=== PATIENT | female | born 1995 | race Caucasian/White ===

== ENCOUNTER 2016-10-04 23:13 | Emergency (ER) | payer OTHER ==
[~2016-10-04] VITALS: Ht 157.5 cm; Wt 94.3 kg
[~2016-10-04 23:13] MED LIST: ADVIL MIGRAINE200 MG PO; AMOXICILLIN500 M2 PO; ATIVAN1 M1 PO; CIPRO 500MG TA500 MG PO; CIPRO500 M1 PO; CIPROFLOXACIN500 M2 PO; ESCITALOPRAM10 MG PO; EXCEDRIN MIGRAI1 TAB PO; FIORICET 50-301 EACH PO; IBUPROFEN600 M1 PO; KETOROLAC TROME10 M1 PO; LORAZEPAM1 MG PO; ONDANSETRON HCL4 MG PO; PERCOCET 5-3251 EACH PO; TYLENOL EXTRA500 M2 PO; ZOFRAN ODT4 M1 PO; ZOFRAN4 M1 PO; ZOFRAN4 M2 PO
--- NOTE | 2016-10-05 00:10 | ED GI/GU/ABDOMINAL COMPLAINT ---
History of Present Illness General Chief Complaint: Abdominal Pain/Flank Pain Stated Complaint: ABD PAIN AND BURNING Source: patient, old records Exam Limitations: no limitations Vital Signs & Intake/Output Vital Signs & Intake/Output Vital Signs Date Time Temp Pulse Resp B/P B/P Pulse O2 O2 Flow FiO2 Mean Ox Delivery Rate 10/05 0101 98.3 78 18 132/84 98 Room Air 10/04 2328 98.3 78 18 128/85 97 Room Air ED Intake and Output 10/05 0000 10/04 1200 Intake Total Output Total Balance Patient 208 lb Weight Weight Reported by Patient Measurement Method Allergies Coded Allergies: NO KNOWN ALLERGIES (04/21/15) Reconcile Medications Acetaminophen (Tylenol Extra Strength) 500 MG TABLET 4 TAB PO PRN PAIN ( Reported) Amoxicillin 500 MG CAPSULE 1 CAP PO TID ear infection Butalb/Acetaminophen/Caffeine (Fioricet 50-300-40 MG Capsule) 50 MG-300 MG-40 MG CAPSULE 1-2 TAB PO Q6P PRN headache Dicyclomine Hydrochloride (Bentyl) 10 MG CAPSULE 1 CAP PO TID PRN pain Famotidine (Pepcid) 20 MG TABLET 1 TAB PO BID gastritis Ibuprofen 600 MG TABLET 1 TAB PO TID PRN pain with food Lorazepam (Ativan) 1 MG TABLET 1 TAB PO PRN ANXIETY (Reported) Ondansetron (Zofran Odt) 4 MG TAB.RAPDIS 1 TAB SL TID PRN nausea Triage Note: PT TO TRIAGE WITH C/O LUQ ABD BURNING x1HR, NAUSEA, VOMITINGx2, DIARRHEA. NO OTHER COMLAINTS. VSS. PT AFEBRILE. Triage Nurses Notes Reviewed? yes LMP (ages 10-50): now ? N Is pt currently ? No Onset: Abrupt Duration: hour(s): (1), constant Timing: recent history Quality/Severity: burning Severity Numbers: 5 Location: epigastric, left upper quadrant Radiation: no radiation Activities at Onset: none No Modifying Factors: none Associated Symptoms: nausea/vomiting HPI: 21-year-old female with history of cholecystectomy presents to ER for evaluation with a 1 hour history of left upper quadrant epigastric abdominal burning pain associated with nausea and one episode of vomiting. No sick contacts no diarrhea is no radiation of pain no back pain chest pain shortness of breath. No black or bloody stools no hematemesis she is not taken anything for symptoms she does smoke she states she had a few alcoholic drinks tonight skeletal however denies any pain yesterday or all day until 1 hour ago. No other modifying factors or associated symptoms. Past History Travel History Traveled to [place] past 21 day No Medical History Any Pertinent Medical History? see below for history Neurological: NONE EENT: NONE Cardiovascular: NONE Respiratory: NONE Gastrointestinal: CHRONIC VOMITIING Hepatic: NONE Renal: NONE Psychiatric: anxiety Endocrine: NONE Surgical History Surgical History: cholecystectomy Psychosocial History What is your primary language [place] Tobacco Use: Current Daily Use Daily Tobacco Use Amount/Type: => 5 Cigarettes daily Family History Hx Contributory? No Review of Systems Review of Systems Constitutional: Reports: see HPI. All Other Systems: Reviewed and Negative Comments Review of systems: See HPI, All other systems negative. Constitutional, no chills no fever, no malaise HEENT: no sore throat no congestion Cardiovascular: No chest pain , no palpitation Skin: no rashes, no change in skin Respiratory: No dyspnea no cough no sputum GI: nausea vomiting, no diarrhea, no bloating/constipation : No dysuria No hematuria, no frequency Muscle skeletal: No joint pain, no back pain, no neck pain, Neurologic: No numbness n no headache Psych: No stress Heme/endocrine: No bruising no bleeding Immunology: No lymphadenopathy Physical Exam Physical Exam General Appearance: well developed/nourished, no apparent distress, alert Gastrointestinal: soft, non-tender Comments: Well-developed well-nourished person in no acute distress HEENT: Normal EENT exam; PERRL, EOMI, HEAD is atraumatic. moist mucous membranes. Neck: Supple, no lymphadenopathy, normal range of motion Back: Nontender, no CVA tenderness. Full range of motion Cardiovascular: Regular rate and rhythms no murmurs rubs Respiratory: No respiratory distress. Patient speaking in full complete sentences. Breath sounds clear to auscultation bilaterally: NO W/R/R Abdomen: Soft, nontender nondistended, no appreciable organomegaly. Normal bowel sounds. No rebound/guarding, No appreciable enlargement of the abdominal aorta, No ascites. Extremity: No edema, full range of motion of extremities Neuro: Alert oriented x3, motor sensory normal, There were no obvious focal neurologic abnormalities. Skin: No appreciable rash on exposed skin, skin is warm and dry. Psych: Mood and affect is normal, memory and judgment is normal. Core Measures ACS in differential dx? No Severe Sepsis Present: No Septic Shock Present: No Progress Differential Diagnosis: appendicitis, bowel obstruction, diverticulitis, gastritis, hepatitis, hernia, inflamm bowel dis, pancreatitis, peptic ulcer, PUD /GERD, perforated viscous, SBO, threatened AB, UTI/pyelo Plan of Care: Orders Procedure Date/time Status URINE 10/04 2324 Complete URINALYSIS 10/04 2324 Complete COMPREHENSIVE METABOLIC PANEL 10/04 2324 Complete CBC WITHOUT DIFFERENTIAL 10/04 2324 Complete Laboratory Tests 10/05/16 0030: Urinalysis LIGHT H, Urine Color YEL, Urine Clarity HAZY H, Urine pH 6.0, Ur Specific [place] 1.025, Urine Protein 30 H, Urine Ketones 15 H, Urine Nitrite NEG, Urine Bilirubin NEG@ICTO, Urine Urobilinogen 1.0, Ur Leukocyte Esterase TRACE H, Ur Microscopic SEDIMENT EXAMINED, Urine RBC 3-5, Urine WBC 1-3 H, Ur Epithelial Cells MOD H, Urine Bacteria FEW H, Urine Mucus MANY H, Urine Hemoglobin LARGE H, Urine Glucose NEG, Urine Test NEGATIVE 10/05/16 0024: Anion Gap 12, Estimated GFR > 60, BUN/Creatinine Ratio 20.0, Glucose 98, Calcium 9.7, Total Bilirubin 1.1, AST 16, ALT 41, Alkaline Phosphatase 56, Total Protein 7.4, Albumin 4.6, Globulin 2.8, Albumin/Globulin Ratio 1.6, CBC w Diff NO MAN DIFF REQ, RBC 4.12 L, MCV 96.4, MCH 33.2 H, RDW 12.1, MPV 10.5 H, Gran % 67.3 , Lymphocytes % 20.5, Monocytes % 6.0, Eosinophils % 5.6 H, Basophils % 0.6, Absolute Granulocytes 5.7, Absolute Lymphocytes 1.7, Absolute Monocytes 0.5, Absolute Eosinophils 0.5, Absolute Basophils 0, PUBS MCHC 34.4 Labs ordered old records reviewed patient appears in no apparent distress she denies nausea at this time Discussed with the patient at length all of her lab results she's had no episode of dry heaving nausea vomiting here given symptoms epigastric left upper quadrant consistent with gastritis W present for the past 1 hour she has had no episodes of vomiting here however clinically appears well laughing conversing with friend who is also placed on stretcher with the patient I discussed with the patient at length all of their results. I had an extensive conversation regarding need for close follow up with their primary care physician this week as well as return precautions. I answered all of their questions, they feel comfortable with the plan and follow-up care. I discussed with the patient/family the medications that they will receive. I gave them signs and symptoms that could indicate an adverse reaction. I have advised them to limit their activities until they can see how they respond to the medication. (ALISTAIR JEAN BAPTISTE,KAYLEN) Initial ED EKG: none Departure Departure Time of Disposition: 54 Disposition: HOME OR SELF CARE Condition: Stable Clinical Impression Primary Impression: Gastritis Referrals: KT BRADFORD,SHAYY Zhong (PCP/Family) Additional Instructions: Pansey diet Pepcid Zofran bentyl as directed. these were sent to [facility]. Follow-up with your Primary care physician on Thursday return to the ER anytime sooner with any concerns. Departure Forms: Customer Survey General Discharge Information Prescriptions: Current Visit Scripts Ondansetron (Zofran Odt) 1 TAB SL TID PRN nausea #10 TAB Dicyclomine Hydrochloride (Bentyl) 1 CAP PO TID PRN pain #15 CAP Famotidine (Pepcid) 1 TAB PO BID #14 TAB General Discharge Information Prescriptions: Current Visit Scripts Ondansetron (Zofran Odt) 1 TAB SL TID PRN nausea #10 TAB Dicyclomine Hydrochloride (Bentyl) 1 CAP PO TID PRN pain #15 CAP Famotidine (Pepcid) 1 TAB PO BID #14 TAB
[2016-10-05 00:49] LABS: ABSOLUTE BASOPHIL COUNT 0 /CUMM (0.0-0.2); ABSOLUTE EOSINOPHIL COUNT 0.5 /CUMM (0.0-0.7); ABSOLUTE GRANULOCYTE CT 5.7 /CUMM (1.4-6.5); ABSOLUTE LYMPH COUNT 1.7 /CUMM (1.2-3.4); ABSOLUTE MONOCYTE COUNT 0.5 /CUMM (0.10-0.60); BASOPHIL % 0.6 % (0.0-2.0); EOSINOPHIL % 5.6 % (0-5); GRANULOCYTE % 67.3 % (42.2-75.2); HEMATOCRIT 39.7 % (37-47); MEAN CORPUSCULAR HGB 33.2 PG (27.0-31.0); MEAN CORPUSCULAR HGB CONC 34.4 G/DL (33.0-37.0); MEAN CORPUSCULAR VOLUME 96.4 FL (81.0-99.0); MEAN PLATELET VOLUME 10.5 FL (7.4-10.4); PLATELET COUNT 221 /CUMM (130-400); RBC DISTRIBUTION WIDTH 12.1 % (11.5-14.5); RED BLOOD CELL CT 4.12 /CUMM (4.20-5.40); WHITE BLOOD CELL COUNT 8.4 /CUMM (4.8-10.8)
[2016-10-05] MEDS ORDERED: ZOFRAN ODT4 M1 SL (00:56)
[2016-10-05] MEDS ORDERED: PEPCID20 M1 PO (00:56)
[2016-10-05] MEDS ORDERED: BENTYL10 M1 PO (00:56)
[2016-10-05 01:01] VITALS: BP 132/84
== END 2016-10-05 01:02 ==
LOC: ERH 23:13
PROVIDERS: Physician Assistant Medical
DX: K29.70 Gastritis, unspecified, without bleeding (principal)
CPT/HCPCS: 81001; 81025; J3101